=== PATIENT | male | born 1955 | race Caucasian/White ===

== ENCOUNTER 2020-08-27 23:37 | Emergency (ER) | payer SELFPAY ==
[~2020-08-27] VITALS: Ht 170.2 cm; Wt 74.8 kg
[2020-08-27 23:51] VITALS: BP 195/113; Ht 170.2 cm; Wt 74.8 kg
[2020-08-28 01:02] LABS: CALCIUM 8.9 mg/dL (8.5-10.1); CARBON DIOXIDE 26.1 mmol/L (21-32); CHLORIDE SERUM 106 mmol/L (98-107); CREATININE SERUM 0.8 mg/dL (0.7-1.3); GFR1 > 60 mL/min; GLUCOSE SERUM 97 mg/dL (74-106); POTASSIUM SERUM 3.9 mmol/L (3.5-5.1); SODIUM SERUM 141 mmol/L (136-145)
[2020-08-28 01:07] LABS: ALBUMIN 4.2 g/dL (3.4-5.0); ALKALINE PHOSPHATASE 53 U/L (46-116); ALT/SGPT 26 U/L (16-63); AST/SGOT 23 U/L (15-37); BILIRUBIN TOTAL 0.5 mg/dL (0.20-1.00); TOTAL PROTEIN, SERUM 7.7 g/dL (6.4-8.2)
== END 2020-08-28 01:29 | disposition other institution (70) ==
LOC: ED 23:37
PROVIDERS: Emergency Medicine
DX: I10 Essential (primary) hypertension (principal)

== ENCOUNTER 2020-08-27 23:37 | Emergency (ER) | payer OTHER | END 2020-08-28 01:29 | disposition other institution (70) | LOC: ED 23:37 | DX: Z02.89 Encounter for other administrative examinations (principal) ==